=== PATIENT | male | born 1980 | race Caucasian/White ===

== ENCOUNTER 2017-07-19 12:45 | Emergency (ER) | payer OTHER ==
[2017-07-19 12:56] VITALS: RESP 16
[2017-07-19] MEDS ORDERED: AMOXICILLIN/CLAVULANATE POT 875/125 MG TAB PO ONE (13:21)
--- NOTE | 2017-07-19 13:32 | EDPHY ---
H & P Time Seen by Provider: 07/19/17 13:31 HPI/ROS: HPI: Mr. Villanueva is a 37 yrs, male who presents with Chief Complaint: Dog bite Location: Left eye area Quality: Dog bite Duration: 1 hour prior to arrival Signs and Symptoms: No vision changes, no bleeding, positive bruising, no dizziness Timing: Sudden Severity: Mild Context: Patient reports that his boxer dog of 2 years of age; who is up-to- date on rabies vaccination, bit him on the left side of eye with resulting bleeding. Patient saw blood and became lightheaded and fainted. Patient reports that this is common occurrence for him when he sees blood. Patient reports that his tetanus up-to-date. Modifying Factors: Direct pressure with cessation of bleeding Comment: ROS: Eyes: No blurred vision Respiratory: No shortness of breath, no cough Cardiovascular: No chest pain Gastrointestinal: No nausea, no vomiting no diarrhea Genitourinary: No dysuria Extremities: No myalgias Neurologic: No weakness, no numbness Skin: No rashes Hematologic: + bruising, +bleeding MEDICAL/SURGICAL HISTORY: Generally healthy. Appendectomy. Social History: lives with his girlfriend. Tobacco user. Smoking Status: Current every day smoker Physical Exam: CONSTITUTIONAL: Pleasant adult white male, awake and alert, no obvious distress HEENT: 1/2 inch superficial linear laceration to bridge of nose and 1/4 inch superficial linear left suborbital area sparing the canthus and orbit itself. normocephalic, PERRL, EOMI. Tympanic membranes clear. . Oropharynx clear, no exudate and moist pink mucosa. Airway patent. No lymphadenopathy. No meningismus. Cardiovascular: Normal S1/S2, regular rate, regular rhythm, without murmur rub or gallop. PULMONARY/CHEST: Symmetrical and nontender. Clear to auscultation bilaterally Good air movement. No accessory muscle usage. ABDOMEN: Soft, nondistended, nontender, no rebound, no guarding, no peritoneal signs, no masses or organomegaly. No CVAT. EXTREMITIES: 2/2 pulses, no deformities, no clubbing, no cyanosis or edema. NEUROLOGICAL: no focal neuro deficits. GCS 15. SKIN: Warm and dry, no erythema. no rash. Good capillary refill. Constitutional: Initial Vital Signs Heart Rate 51 L 07/19/17 12:54 Respiratory Rate 16 08/21/17 12:54 Blood Pressure 124/65 H 07/19/17 12:54 O2 Sat (%) 97 07/19/17 12:54 O2 Delivery Mode Room Air Allergies/Adverse Reactions: No Known Allergies Allergy (Unverified 07/19/17 12:54) Home Medications: Medication Instructions Recorded Amoxicillin/Clavulanate Pot 875 mg PO BID #14 tab 07/19/17 [Augmentin 875 MG TAB (*)] Medical Decision Making Procedures: Procedure: Laceration repair. Verbal consent was obtained from the patient. The 0.5 inch superficial linear on bridge of nose and 4th inch left suborbital area superficial linear laceration on was anesthetized in the usual fashion. The wound was irrigated, draped and explored to its base with a gloved finger. There were no deep structures involved. The wound was repaired with 6-0 Vicryl subcuticular running suture Cinthia and 6-0 Vicryl subcuticular running suture left suborbital. The wound did not show any foreign bodies. Patient tolerated procedure well and good hemostasis was achieved. The procedure was performed by myself. ED Course/Re-evaluation: Wound care and laceration repair. Tetanus up-to-date. Rabies prophylaxis not indicated. Differential Diagnosis: Differential diagnosis includes laceration, nerve injury, eye injury, contusion. - Data Points Medications Given: Discontinued Medications Amoxicillin/Clavulanate Potassium (Augmentin 875mg) 875 mg PO EDNOW ONE PRN Reason: Protocol Stop: 07/19/17 13:22 Last Admin: 07/19/17 13:35 Dose: 875 mg Departure - Departure Disposition: Home, Routine, Self-Care Clinical Impression: Dog bite of face Qualifiers: Encounter type: initial encounter Qualified Code(s): S01.85XA - Open bite of other part of head, initial encounter; W54.0XXA - Bitten by dog, initial encounter Face lacerations Qualifiers: Encounter type: initial encounter Qualified Code(s): S01.81XA - Laceration without foreign body of other part of head, initial encounter Condition: Good Instructions: Animal Bite (ED), Care For Your Absorbable Stitches (ED) Additional Instructions: Keep Steri-Strips in place until they fall off. Keep wound dry times 48 hours and then may wash with mild soap and water and pat Steri-Strips dry. Allow Steri-Strips to fall off on their own approximately 5-7 days. Referrals: BARRERA MOBLEY [Other] - As per Instructions Prescriptions: Amoxicillin/Clavulanate Pot [Augmentin 875 MG TAB (*)] 875 mg PO BID #14 tab
[2017-07-19 14:43] VITALS: BP 116/81; PULSE 55; O2SAT 99
== END 2017-07-19 14:43 | disposition home or self-care (01) ==
PROC: 0HQ1XZZ Repair Face Skin, External Approach (ICD-10-PCS; principal; 2017-07-19)
DX: S01.85XA Open bite of other part of head, initial encounter (principal); S01.21XA Laceration without foreign body of nose, initial encounter; W54.0XXA Bitten by dog, initial encounter